=== PATIENT | female | born 1960 | race African-American/Black ===

== ENCOUNTER 2020-04-08 20:34 | Emergency (ER) | payer OTHER, MEDICAID ==
[~2020-04-08] VITALS: Ht 160 cm; Wt 125.0 kg
[~2020-04-08 20:34] MED LIST: ALLO1POW; INDOMETHACIN; LOSARTAN; SINGULAIR
[2020-04-08 20:55] VITALS: BP 116/84
[2020-04-08] MEDS ORDERED: CEFTRIAXONE 1 G PREMIX 50 ML IV ONE (21:00)
[2020-04-08] MEDS ORDERED: AZITHROMYCIN 500 MG in DEXT 5% WATER 250 ML IV ONE (21:00)
[2020-04-08] MEDS ORDERED: METHYLPREDNISOLONE SOD SUCC 125 MG/2 ML VIAL IV ONE (21:00)
[2020-04-08] MEDS ORDERED: ACETAMINOPHEN 325MG TABLET PO STA (21:00)
== END 2020-04-08 23:00 | disposition left against medical advice (07) ==
LOC: ER 20:34 → CANBEDREQ 04-09 00:25
DX: R09.02 Hypoxemia (principal); Z20.828 Contact with and (suspected) exposure to other viral communicable diseases; E11.9 Type 2 diabetes mellitus without complications; I10 Essential (primary) hypertension; Z98.890 Other specified postprocedural states; Z79.899 Other long term (current) drug therapy
CPT/HCPCS: 71045; 93005; 99283; J0456; J7060; 80053; 83880; 84484